=== PATIENT | male | born 1985 | race African-American/Black ===

== ENCOUNTER 2016-09-01 09:11 | Emergency (ER) | payer OTHER ==
[~2016-09-01] VITALS: Ht 167.6 cm; Wt 79.4 kg
--- NOTE | 2016-09-01 09:30 | ED GI/GU/ABDOMINAL COMPLAINT ---
History of Present Illness General Chief Complaint: Abdominal Pain/Flank Pain Stated Complaint: ABD PAIN, NAUSEOUS Source: patient Exam Limitations: no limitations Vital Signs & Intake/Output Vital Signs & Intake/Output Vital Signs Date Time Temp Pulse Resp B/P Pulse O2 O2 Flow FiO2 Ox Delivery Rate 09/01 1137 97.2 63 15 120/67 98 Room Air Room Air 09/01 0951 Room Air Room Air 09/01 0916 97.4 60 18 148/88 98 Room Air Allergies Coded Allergies: NO KNOWN ALLERGIES (09/01/16) Reconcile Medications Ibuprofen 800 MG TABLET 1 TAB PO Q8H PRN pain Ondansetron (Zofran Odt) 4 MG TAB.RAPDIS 1 TAB SL TID PRN nausea Oxycodone HCl/Acetaminophen (Percocet 5-325 MG Tablet) 5 MG-325 MG TABLET 1-2 TAB PO Q6H PRN PAIN Tamsulosin HCl (Flomax) 0.4 MG CAP.ER.24H 1 CAP PO DAILY PRN kidney stone Triage Note: PT COMPLAINS OF L SIDE FLANK PAIN, STARTED DULL LAST PM AND NOW IS 10/10 SHARP WITH NAUSEA. NOTED BLOOD IN URINE Triage Nurses Notes Reviewed? yes HPI: Patient is a 31-year-old male presents complaining of left-sided abdominal pain. Pain onset yesterday, worse today. Pain is a sharp pain currently 10 out of 10 , worsens with movement. Associated nausea this morning. Patient also reports dark urine that he believes may have contained blood this morning. Last bowel movement was this morning and normal. Patient denies fevers, chills, vomiting, dysuria, recent trauma. (DEBI RIOS) Past History Travel History Traveled to [place] past 21 day No Medical History Any Pertinent Medical History? 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 No (DEBI RIOS) Review of Systems Review of Systems Constitutional: Denies: chills, fever. EENTM: Reports: no symptoms. Respiratory: Denies: cough, short of breath. Cardiovascular: Denies: chest pain. GI: Reports: see HPI. Genitourinary: Reports: see HPI. Musculoskeletal: Denies: back pain. Skin: Reports: no symptoms. Neurological/Psychological: Reports: no symptoms. Hematologic/Endocrine: Reports: no symptoms. Immunologic/Allergic: Reports: no symptoms. (DEBI RIOS) Physical Exam Physical Exam General Appearance: well developed/nourished, alert, awake Head: atraumatic, normal appearance Eyes: Bilateral: normal appearance, PERRL, EOMI. Ears, Nose, Throat, Mouth: hearing grossly normal, moist mucous membrane Neck: normal inspection, supple, full range of motion Respiratory: normal breath sounds, chest non-tender, no respiratory distress, lungs clear Cardiovascular: regular rate/rhythm Gastrointestinal: normal bowel sounds, soft, mild diffuse left-sided abdominal tenderness. No rebound, rigidity, guarding Male Genitals: normal cremasteric reflex. mild left testicular tenderness Back: normal inspection, normal range of motion, no CVA tenderness Extremities: normal range of motion Neurologic/Psych: no motor/sensory deficits, awake, alert, oriented x 3, normal gait, normal mood/affect Skin: intact, normal color, warm/dry Core Measures ACS in differential dx? No Severe Sepsis Present: No Septic Shock Present: No (DEBI RIOS) Progress Differential Diagnosis: diverticulitis, epididymitis, orchitis, perforated viscous, pyelonephritis, SBO, testicular torsion, ureterolithiasis, urinary retention, urethritis, UTI/pyelo Plan of Care: Orders Procedure Date/time Status URINALYSIS 09/01 0935 Complete COMPREHENSIVE METABOLIC PANEL 09/01 0935 Complete CBC WITHOUT DIFFERENTIAL 09/01 0935 Complete Laboratory Tests 09/01/16 1030: Anion Gap 8, Estimated GFR > 60, BUN/Creatinine Ratio 17.5, Glucose 117 H, Calcium 9.2, Total Bilirubin 0.6, AST 20, ALT 38, Alkaline Phosphatase 57, Total Protein 6.5, Albumin 3.9, Globulin 2.6, Albumin/Globulin Ratio 1.5, CBC w Diff NO MAN DIFF REQ, RBC 5.10, MCV 85.0, MCH 28.4, RDW 13.7, MPV 8.4, Gran % 74.5, Lymphocytes % 17.3 L, Monocytes % 5.3, Eosinophils % 2.6, Basophils % 0.3, Absolute Granulocytes 6.6 H, Absolute Lymphocytes 1.5, Absolute Monocytes 0.5, Absolute Eosinophils 0.2, Absolute Basophils 0, PUBS MCHC 33.4 09/01/16 0945: Urine Color YEL, Urine Clarity CLDY H, Urine pH 6.0, Ur Specific [place] >= 1.030, Urine Protein 30 H, Urine Ketones NEG, Urine Nitrite NEG, Urine Bilirubin NEG, Urine Urobilinogen 0.2, Ur Leukocyte Esterase TRACE H, Ur Microscopic SEDIMENT EXAMINED, Urine RBC >75 H, Urine WBC RARE, Urine Hemoglobin LARGE H, Urine Glucose NEG 09/01/2016 11:38:34 AM: Pain resolved. Results of labs and imaging discussed with patient. Patient appears stable for discharge and outpatient follow-up. Patient provided with a urine strainer. (DEBI RIOS) Diagnostic Imaging: Viewed by Me: CT Scan. Discussed w/RAD: CT Scan. Initial ED EKG: none (DEBI RIOS) Departure Departure Time of Disposition: 1133 Disposition: HOME OR SELF CARE Condition: Stable Clinical Impression Primary Impression: Renal colic on left side Referrals: YESY PANCHAL,HERMELINDA JOHNSON MD,KEEGAN (PCP/Family) Additional Instructions: Drink plenty of fluids. Urinate into the strainer provided. Follow-up with Dr. Singh(urologist) for further evaluation. Return to the emergency department if he developed fevers, pain uncontrollable, unable to stay hydrated, or worsening of symptoms. Departure Forms: Customer Survey General Discharge Information Prescriptions: Current Visit Scripts Ibuprofen 1 TAB PO Q8H PRN pain #30 TAB Oxycodone HCl/Acetaminophen (Percocet 5-325 MG Tablet) 1-2 TAB PO Q6H PRN PAIN #15 TAB Ondansetron (Zofran Odt) 1 TAB SL TID PRN nausea #10 TAB Tamsulosin HCl (Flomax) 1 CAP PO DAILY PRN kidney stone #7 CAP (DEBI RIOS) PA/MOLD HOISTER Co-Sign Statement Statement: ED Attending supervision documentation- [] I saw and evaluated the patient. I have also reviewed all the pertinent lab results and diagnostic results. I agree with the findings and the plan of care as documented in the PA's/MOLD HOISTER's documentation. [X] I have reviewed the ED Record and agree with the PA's/MOLD HOISTER's documentation. [] Additions or exceptions (if any) to the PAs/MOLD HOISTER's note and plan are summarized below: [] (NAYE CRUMP DO)
--- NOTE | 2016-09-01 10:33 | CT SCAN REPORT ---
EXAMINATION: CT ABDOMEN AND PELVIS WITHOUT CONTRAST CLINICAL INFORMATION: Left-sided abdominal pain and question hematuria. COMPARISON: None available. TECHNIQUE: Multidetector volumetric imaging was performed from the superior aspect of the liver through the pubic symphysis. Sagittal and coronal reformatted images were obtained on the technologist's workstation. FINDINGS: There is a 2 mm obstructing calculus within the proximal left ureter at the L3-L4 disc level that results in mild left-sided hydroureteronephrosis. There are several punctate 1 to 2 mm nonobstructing calculi within the right kidney. The lung bases are clear. Limited evaluation of the unenhanced liver, spleen, adrenal glands, gallbladder, and pancreas reveals no definite abnormality. The large and small bowel are normal in caliber without evidence of mechanical obstruction. No focal inflammatory changes adjacent to the large or the small bowel. The appendix is normal. There is no free air and there is no intra-abdominal free fluid. No mesenteric or retroperitoneal adenopathy. The pelvic viscera are normal. No pelvic adenopathy. No free fluid within the pelvis. There are no acute osseous abnormalities. No significant soft tissue abnormality. IMPRESSION: - Left-sided obstructive uropathy with a 2 mm obstructing calculus within the proximal left ureter at the L3-L4 disc level that results in mild left-sided hydroureteronephrosis. - There are several punctate 1 to 2 mm nonobstructing calculi within the right kidney.
[2016-09-01 10:39] LABS: ABSOLUTE BASOPHIL COUNT 0 /CUMM (0.0-0.2); ABSOLUTE EOSINOPHIL COUNT 0.2 /CUMM (0.0-0.7); ABSOLUTE GRANULOCYTE CT 6.6 /CUMM (1.4-6.5); ABSOLUTE LYMPH COUNT 1.5 /CUMM (1.2-3.4); ABSOLUTE MONOCYTE COUNT 0.5 /CUMM (0.10-0.60); BASOPHIL % 0.3 % (0.0-2.0); EOSINOPHIL % 2.6 % (0-5); GRANULOCYTE % 74.5 % (42.2-75.2); HEMATOCRIT 43.3 % (42-52); MEAN CORPUSCULAR HGB 28.4 PG (27.0-31.0); MEAN CORPUSCULAR HGB CONC 33.4 G/DL (33.0-37.0); MEAN PLATELET VOLUME 8.4 FL (7.4-10.4); PLATELET COUNT 240 /CUMM (130-400); RBC DISTRIBUTION WIDTH 13.7 % (11.5-14.5); WHITE BLOOD CELL COUNT 8.9 /CUMM (4.8-10.8)
[2016-09-01] MEDS ORDERED: FLOMAX0.4 M1 PO (11:36)
[2016-09-01] MEDS ORDERED: ZOFRAN ODT4 M1 SL (11:36)
[2016-09-01] MEDS ORDERED: IBUPROFEN800 M1 PO (11:36)
[2016-09-01] MEDS ORDERED: PERCOCET 5-3251 EACH PO (11:36)
[2016-09-01 11:37] VITALS: BP 120/67
== END 2016-09-01 11:45 ==
LOC: ERH 09:11
PROVIDERS: Physician Assistant
DX: N23 Unspecified renal colic (principal)
CPT/HCPCS: 74176; 81001; 96361; 96374; 96375; J1885; J2405

== ENCOUNTER 2016-09-19 18:17 | Emergency (ER) | payer OTHER ==
[~2016-09-19] VITALS: Ht 167.6 cm; Wt 79.4 kg
[~2016-09-19 18:17] MED LIST: FLOMAX0.4 M1 PO; IBUPROFEN800 M1 PO; PERCOCET 5-3251 EACH PO; ZOFRAN ODT4 M1 SL
[2016-09-19 20:26] LABS: ABSOLUTE BASOPHIL COUNT 0 /CUMM (0.0-0.2); ABSOLUTE EOSINOPHIL COUNT 0.3 /CUMM (0.0-0.7); ABSOLUTE GRANULOCYTE CT 6.4 /CUMM (1.4-6.5); ABSOLUTE MONOCYTE COUNT 0.9 /CUMM (0.10-0.60); BASOPHIL % 0.4 % (0.0-2.0); EOSINOPHIL % 2.7 % (0-5); GRANULOCYTE % 59.9 % (42.2-75.2); HEMATOCRIT 46.5 % (42-52); MEAN CORPUSCULAR HGB 28.5 PG (27.0-31.0); MEAN CORPUSCULAR HGB CONC 33.3 G/DL (33.0-37.0); MEAN CORPUSCULAR VOLUME 85.4 FL (80.0-94.0); MEAN PLATELET VOLUME 8.2 FL (7.4-10.4); PLATELET COUNT 326 /CUMM (130-400); RBC DISTRIBUTION WIDTH 13.5 % (11.5-14.5); RED BLOOD CELL CT 5.45 /CUMM (4.70-6.10); WHITE BLOOD CELL COUNT 10.8 /CUMM (4.8-10.8)
--- NOTE | 2016-09-19 20:57 | ED GI/GU/ABDOMINAL COMPLAINT ---
History of Present Illness General Chief Complaint: Abdominal Pain/Flank Pain Stated Complaint: KIDNEY STONES Source: patient Exam Limitations: no limitations Vital Signs & Intake/Output Vital Signs & Intake/Output Vital Signs Date Time Temp Pulse Resp B/P B/P Pulse O2 O2 Flow FiO2 Mean Ox Delivery Rate 09/19 2143 96.8 63 18 108/68 98 Room Air 09/19 1824 98.3 83 16 146/79 96 Room Air ED Intake and Output 09/20 0000 09/19 1200 Intake Total Output Total Balance Patient 175 lb Weight Weight Reported by Patient Measurement Method Allergies Coded Allergies: NO KNOWN ALLERGIES (09/01/16) Triage Note: PT STATES HE HAS KIDNEY STONES HE WAS HERE 1.5 WEEKS AGO AND STATES HE THINKS THEY ARE BACK. 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 PT HAVING LEFT SIDED FLANK PAIN SINCE 1 HOUR AGO. Triage Nurses Notes Reviewed? yes HPI: Patient is a 31-year-old male presents complaining of left flank pain. Patient was diagnosed with kidney stones approximately one to 2 weeks ago, reports that his symptoms had improved. Pain increased over the past one day. Patient was administered ibuprofen in triage with significant improvement. Patient had associated nausea, was administered Zofran with significant improvement. Symptoms are currently minimal, were severe at home. Patient denies fevers, chills, vomiting, diarrhea, dysuria. (DEBI RIOS) Reconcile Medications Ondansetron (Zofran Odt) 4 MG TAB.RAPDIS 1 TAB SL TID PRN nausea Tramadol HCl 50 MG TABLET 1 TAB PO BIDP PRN pain (FELISA PANCHAL,KAROLINA Villegas) Past History Travel History Traveled to [place] past 21 day No Medical History Any Pertinent Medical History? 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 No (DEBI RIOS) Review of Systems Review of Systems Constitutional: Denies: chills, fever. EENTM: Reports: no symptoms. Respiratory: Denies: cough, short of breath. Cardiovascular: Denies: chest pain. GI: Reports: see HPI. Genitourinary: Reports: see HPI. Musculoskeletal: Denies: back pain. Skin: Reports: no symptoms. Neurological/Psychological: Reports: no symptoms. Hematologic/Endocrine: Reports: no symptoms. Immunologic/Allergic: Reports: no symptoms. (EDBI RIOS) Physical Exam Physical Exam General Appearance: well developed/nourished, alert, awake Head: atraumatic, normal appearance Eyes: Bilateral: normal appearance, PERRL, EOMI. Ears, Nose, Throat, Mouth: hearing grossly normal, moist mucous membrane Neck: normal inspection, supple, full range of motion Respiratory: normal breath sounds, chest non-tender, no respiratory distress, lungs clear Cardiovascular: regular rate/rhythm Gastrointestinal: normal bowel sounds, soft, mild left flank tenderness. Negative Monroy sign, negative McBurney's point tenderness Back: normal inspection, normal range of motion, no vertebral tenderness, no CVA tenderness Extremities: normal range of motion Neurologic/Psych: no motor/sensory deficits, awake, alert, oriented x 3, normal gait, normal mood/affect Skin: intact, normal color, warm/dry Core Measures ACS in differential dx? No Severe Sepsis Present: No Septic Shock Present: No (DEBI RIOS) Progress Differential Diagnosis: appendicitis, biliary colic, cholecystitis, diverticulitis, hepatitis, hernia, pancreatitis, prostatitis, PUD/GERD, pyelonephritis, ureterolithiasis, UTI/pyelo Plan of Care: Orders Procedure Date/time Status Add-on Test (ER Only) 09/19 2102 Active TRIGLYCERIDES 09/19 2009 Complete LIPASE 09/19 1909 Complete HEPATIC FUNCTION PANEL 09/19 1909 Complete CBC WITHOUT DIFFERENTIAL 09/19 1909 Complete BASIC METABOLIC PANEL 09/19 1909 Complete AMYLASE 09/19 1909 Complete URINALYSIS 09/19 1833 Complete Laboratory Tests 09/19/162009: Anion Gap 13, Estimated GFR > 60, BUN/Creatinine Ratio 14.0, Glucose 87, Calcium 9.9, Total Bilirubin 0.8, Direct Bilirubin 0.3, AST 24, ALT 35, Alkaline Phosphatase 65, Total Protein 8.0, Albumin 4.9, Triglycerides 74, Amylase 238 H , Lipase 1441 H, CBC w Diff NO MAN DIFF REQ, RBC 5.45, MCV 85.4, MCH 28.5, RDW 13.5, MPV 8.2, Gran % 59.9, Lymphocytes % 28.3, Monocytes % 8.7, Eosinophils % 2.7, Basophils % 0.4, Absolute Granulocytes 6.4, Absolute Lymphocytes 3.0, Absolute Monocytes 0.9 H, Absolute Eosinophils 0.3, Absolute Basophils 0, PUBS MCHC 33.3 09/19/16 1837: Urine Color YEL, Urine Clarity CLEAR, Urine pH 6.0, Ur Specific [place] 1.025, Urine Protein TRACE H, Urine Ketones NEG, Urine Nitrite NEG, Urine Bilirubin NEG, Urine Urobilinogen 1.0, Ur Leukocyte Esterase NEG, Ur Microscopic SEDIMENT EXAMINED, Urine RBC 25-50 H, Urine WBC 5-10 H, Ur Epithelial Cells FEW, Urine Bacteria FEW H, Urine Mucus PACKD H, Urine Hemoglobin LARGE H, Urine Glucose NEG 2250: Patient apparently walked out of the emergency department without notifying the nursing staff or me. (PANCHITO WALLS,DEBI) Diagnostic Imaging: Viewed by Me: Ultrasound. Discussed w/RAD: Ultrasound. Radiology Impression: PATIENT: LUDIN CRUZ PRESENT AGE: 31 PATIENT ACCOUNT NO: [id number] : 87 LOCATION: [facility] ORDERING PHYSICIAN: DEBI WALLS SERVICE DATE: 09/19/16 EXAM TYPE: US - US-COMPLETE ABDOMEN EXAMINATION: US ABDOMEN COMPLETE CLINICAL INFORMATION: Hematuria. Abdominal pain. Evaluate for kidney stone and pancreatitis. COMPARISON: CT abdomen and pelvis without contrast 09/01/2016. TECHNIQUE: Real- time imaging of the abdominal viscera. FINDINGS: PANCREAS: Partially obscured by overlying bowel gas. ABDOMINAL AORTA: The proximal segment is normal in caliber. INFERIOR VENA CAVA: Visualized portions are normal. LIVER: Unremarkable. The liver demonstrates normal size, contour and echogenicity. No focal lesion or intrahepatic biliary duct dilatation. GALLBLADDER: Unremarkable. The gallbladder is physiologically distended without evidence of stones, sludge, polyps, wall thickening or pericholecystic fluid. COMMON BILE DUCT: Normal in caliber measuring 0.3 cm in diameter. RIGHT KIDNEY: Unremarkable. No hydronephrosis. No renal calculi or focal parenchymal lesions. The kidney measures 10.2 cm in maximum dimension. LEFT KIDNEY: Unremarkable. No hydronephrosis. No renal calculi or focal parenchymal lesions. The kidney measures 12.0 cm in maximum dimension. SPLEEN: Unremarkable. The spleen measures 9.0 cm in maximum dimension. FREE FLUID: None. IMPRESSION: The pancreas is partially obscured by overlying bowel gas. No peripancreatic fluid collections are visualized. Otherwise, unremarkable abdominal ultrasound. DICTATED BY: COREY EGAN MD DATE/TIME DICTATED:09/19/162234 BLANKBOOK FORWARDER:SOHAIL DATE/TIME TRANSCRIBED:09/19/162234 CONFIDENTIAL, DO NOT COPY WITHOUT APPROPRIATE AUTHORIZATION. <Electronically signed in Other Vendor System> SIGNED BY: COREY EGAN MD 09/19/162 Initial ED EKG: none (EDBI RIOS) Departure Departure Disposition: ER WALKOUT Condition: Stable Clinical Impression Primary Impression: Renal colic on left side Secondary Impressions: Hematuria, Pancreatitis Referrals: KEEGAN JOHNSON MD (PCP/Family) Departure Forms: Customer Survey General Discharge Information (DEBI RIOS) PA/MASTER FIRE CONTROL TECHNICIAN Co-Sign Statement Statement: ED Attending supervision documentation- [] I saw and evaluated the patient. I have also reviewed all the pertinent lab results and diagnostic results. I agree with the findings and the plan of care as documented in the PA's/MASTER FIRE CONTROL TECHNICIAN's documentation. [x] I have reviewed the ED Record and agree with the PA's/MASTER FIRE CONTROL TECHNICIAN's documentation. [] Additions or exceptions (if any) to the PAs/MASTER FIRE CONTROL TECHNICIAN's note and plan are summarized below: [] (FELISA PANCHAL,KAROLINA Villegas)
[2016-09-19 21:43] VITALS: BP 108/68
--- NOTE | 2016-09-19 22:44 | ULTRASOUND REPORT ---
EXAMINATION: US ABDOMEN COMPLETE CLINICAL INFORMATION: Hematuria. Abdominal pain. Evaluate for kidney stone and pancreatitis. COMPARISON: CT abdomen and pelvis without contrast 09/01/2016. TECHNIQUE: Real-time imaging of the abdominal viscera. FINDINGS: PANCREAS: Partially obscured by overlying bowel gas. ABDOMINAL AORTA: The proximal segment is normal in caliber. INFERIOR VENA CAVA: Visualized portions are normal. LIVER: Unremarkable. The liver demonstrates normal size, contour and echogenicity. No focal lesion or intrahepatic biliary duct dilatation. GALLBLADDER: Unremarkable. The gallbladder is physiologically distended without evidence of stones, sludge, polyps, wall thickening or pericholecystic fluid. COMMON BILE DUCT: Normal in caliber measuring 0.3 cm in diameter. RIGHT KIDNEY: Unremarkable. No hydronephrosis. No renal calculi or focal parenchymal lesions. The kidney measures 10.2 cm in maximum dimension. LEFT KIDNEY: Unremarkable. No hydronephrosis. No renal calculi or focal parenchymal lesions. The kidney measures 12.0 cm in maximum dimension. SPLEEN: Unremarkable. The spleen measures 9.0 cm in maximum dimension. FREE FLUID: None. IMPRESSION: The pancreas is partially obscured by overlying bowel gas. No peripancreatic fluid collections are visualized. Otherwise, unremarkable abdominal ultrasound.
== END 2016-09-19 22:45 | disposition admitted as inpatient to this hospital (09) ==
LOC: ERH 18:17
PROVIDERS: Pediatrics
DX: N23 Unspecified renal colic (principal); K85.90 Acute pancreatitis without necrosis or infection, unspecified
CPT/HCPCS: 81001; J3101

== ENCOUNTER 2016-09-23 15:44 | Emergency (ER) | payer OTHER ==
[~2016-09-23] VITALS: Ht 167.6 cm; Wt 79.4 kg
--- NOTE | 2016-09-23 16:36 | ED GI/GU/ABDOMINAL COMPLAINT ---
History of Present Illness General Chief Complaint: Abdominal Pain/Flank Pain Stated Complaint: L FLANK PAIN, HX OF KIDNEY STONES Source: patient Exam Limitations: no limitations Vital Signs & Intake/Output Vital Signs & Intake/Output Vital Signs Date Time Temp Pulse Resp B/P B/P Pulse O2 O2 Flow FiO2 Mean Ox Delivery Rate 09/23 1819 97.0 69 18 125/71 98 Room Air 09/23 1548 97.6 76 20 125/84 97 Room Air ED Intake and Output 09/24 0000 09/23 1200 Intake Total Output Total Balance Patient 175 lb Weight Weight Reported by Patient Measurement Method Allergies Coded Allergies: NO KNOWN ALLERGIES (09/01/16) Reconcile Medications Ondansetron (Zofran Odt) 4 MG TAB.RAPDIS 1 TAB SL TID PRN nausea Tramadol HCl 50 MG TABLET 1 TAB PO BIDP PRN pain Triage Note: PT TO ED C/O "KIDNEY STONES". C/O LEFT FLANK PAIN. STARTED 3 WEEKS AGO. SEEN LAST WEEK FOR SAME. C/O URINARY URGENCY. HAS NOT SEEN A UROLOGIST. Triage Nurses Notes Reviewed? yes HPI: This patient is a 31-year-old male who presented to the emergency department today for evaluation of left lower quadrant abdominal pain. The patient reported that his pain began approximately 2 days ago and he has a dull associated left flank pain. He did report urinary frequency, but denies any urgency, dysuria, or blood in the urine. The patient reported that approximately 2 weeks ago he was diagnosed with kidney stones on the left. He never followed up with urologist. He reported that he came again about one week ago and was given Flomax any urologist follow-up with she never did. He reported that symptoms seemed to improve after that time, but began again 2 days ago. He denied any chest pain, difficult breathing, fevers, chills, nausea, vomiting. The patient took Motrin prior to arrival in the emergency department and is refusing any medication or fluids at this time. He reported that he is currently pain-free. The pain gets up to a 7 out of 10 and is intermittent. (RHONDA LAGUERRE,JERRI) Past History Travel History Traveled to [place] past 21 day No Medical History Any Pertinent Medical History? 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 No (JERRI ELLIS PA-C) Review of Systems Review of Systems Constitutional: Reports: no symptoms. EENTM: Reports: no symptoms. Respiratory: Reports: no symptoms. Cardiovascular: Reports: no symptoms. GI: Reports: see HPI. Genitourinary: Reports: see HPI. Musculoskeletal: Reports: see HPI. Skin: Reports: no symptoms. Neurological/Psychological: Reports: no symptoms. All Other Systems: Reviewed and Negative (JERRI ELLIS PA-C) Physical Exam Physical Exam Gastrointestinal: normal bowel sounds, soft, non-tender, no organomegaly, no rebound or guarding. Nondistended. No McBurney's point tenderness. Negative Monroy sign Comments: Well-developed well-nourished person in no acute distress HEENT: Normal EENT exam, moist mucous membranes Neck: Supple, no lymphadenopathy Back: Normal inspection. Normal gait. No midline tenderness. No CVA tenderness Cardiovascular: Regular rate and rhythm with no murmurs Respiratory: No respiratory distress. Breath sounds clear to auscultation bilaterally Extremity: Normal equal pulses Neuro: Alert oriented x3, cranial nerves II through XII grossly intact. Skin: No appreciable rash on exposed skin, skin is warm and dry. Psych: Mood and affect is normal Core Measures ACS in differential dx? No Severe Sepsis Present: No Septic Shock Present: No (JERRI ELLIS PA-C) Progress Differential Diagnosis: AMI, appendicitis, biliary colic, bowel obstruction, colon cancer, cholecystitis, diverticulitis, gastritis, hepatitis, hernia, ischemic bowel, inflamm bowel dis, pancreatitis, PUD/GERD, perforated viscous, pyelonephritis, ureterolithiasis, urinary retention, urethritis, UTI/pyelo Plan of Care: Orders Procedure Date/time Status Add-on Test (ER Only) 09/23 1651 Active CULTURE,URINE 09/23 1636 Active COMPREHENSIVE METABOLIC PANEL 09/23 1636 Complete CBC WITHOUT DIFFERENTIAL 09/23 163 Complete URINALYSIS 09/23 1621 Complete Laboratory Tests 09/23/16 1658: Anion Gap 11, Estimated GFR > 60, BUN/Creatinine Ratio 16.0, Glucose 104 H, Calcium 9.3, Total Bilirubin 0.5, AST 19, ALT 32, Alkaline Phosphatase 53, Total Protein 6.9, Albumin 4.4, Globulin 2.5, Albumin/Globulin Ratio 1.8, CBC w Diff NO MAN DIFF REQ, RBC 5.26, MCV 86.2, MCH 28.4, RDW 13.7, MPV 7.9, Gran % 68.7, Lymphocytes % 20.1 L, Monocytes % 8.6, Eosinophils % 2.3, Basophils % 0.3, Absolute Granulocytes 7.0 H, Absolute Lymphocytes 2.1, Absolute Monocytes 0.9 H, Absolute Eosinophils 0.2, Absolute Basophils 0, PUBS MCHC 32.9 L 09/23/16 1634: Urine Color YEL, Urine Clarity CLEAR, Urine pH 6.5, Ur Specific [place] 1.025, Urine Protein TRACE H, Urine Ketones TRACE H, Urine Nitrite NEG, Urine Bilirubin NEG, Urine Urobilinogen 1.0, Ur Leukocyte Esterase TRACE H, Ur Microscopic SEDIMENT EXAMINED, Urine RBC RARE, Ur Epithelial Cells RARE, Urine Hemoglobin SMALL H, Urine Glucose NEG Microbiology 09/23 1633 URINE ROUT: Urine Culture - RES Diagnostic Imaging: Viewed by Me: CT Scan. Discussed w/RAD: CT Scan. Radiology Impression: PATIENT: LUDIN CRUZ PRESENT AGE: 31 PATIENT ACCOUNT NO: [id number] : 87 LOCATION: [facility] ORDERING PHYSICIAN: JERRI ELLIS PA-C SERVICE DATE: 09/23/16 EXAM TYPE: CAT - CT ABD & PELVIS W/O IV CONTRAS EXAMINATION: CT ABDOMEN AND PELVIS WITHOUT CONTRAST CLINICAL INFORMATION: Left flank pain. COMPARISON: CT abdomen and pelvis without contrast 09/01/2016. TECHNIQUE: Multidetector volumetric imaging was performed from the superior aspect of the liver through the pubic symphysis. Sagittal and coronal reformatted images were obtained on the technologist's workstation. DLP: 253 mGy-cm FINDINGS: Limited evaluation of the solid abdominal viscera in the absence of intravenous contrast. LUNG BASES: The visualized lung bases are unremarkable. LIVER, GALLBLADDER, AND BILIARY TREE: The liver is normal in size, shape, and attenuation. No contour deforming hepatic lesion or biliary ductal dilatation is present. The gallbladder is unremarkable with no evidence of radiopaque gallstones, gallbladder wall thickening, or obvious pericholecystic inflammatory changes. PANCREAS: Unremarkable. SPLEEN: Unremarkable. ADRENAL GLANDS: Unremarkable. KIDNEYS AND URETERS: Evaluation of the bilateral kidneys is notable for asymmetric enlargement of the left kidney, which appears edematous relative to the right kidney. The appearance of the left kidney is likely secondary to an obstructing stone within the distal left ureter , at the left ureterovesicular junction measuring 4 mm. There is mild hydroureteronephrosis of the left kidney and left renal collecting system to the level of the left the obstructing stone. There is nephrolithiasis of the right kidney with 2-3 mm nonobstructing stones identified within the upper and mid poles of the right kidney. BLADDER: No bladder stones. GASTROINTESTINAL TRACT: Normal anatomic orientation of the stomach relative to the duodenum. Normal caliber of abdominal and pelvic bowel loops, without evidence of obstruction or ileus. No circumferential bowel wall thickening with surrounding inflammatory changes to suggest an underlying infectious or inflammatory enterocolitis. Normal-appearing appendix within the right lower quadrant of the abdomen. No organizing intra-abdominal fluid collections or free intraperitoneal air. ABDOMINAL WALL: No significant hernia is appreciated. LYMPH NODES: No significant abdominal or pelvic adenopathy. VASCULAR: Normal course and caliber of the abdominal aorta and its branching vessels, without aneurysmal dilatation. Limited evaluation for vascular patency in the absence of intravenous contrast. PELVIC VISCERA: Unremarkable. OSSEOUS STRUCTURES: No acute osseous abnormality. Normal alignment of the imaged thoracolumbar spine. IMPRESSION: 1. Asymmetric enlargement of the left kidney, which appears edematous relative to the right kidney. The appearance of the left kidney is likely secondary to a 4 mm obstructing stone within the distal left ureter, at the left ureterovesicular junction. There is mild upstream hydroureteronephrosis of the left kidney and left renal collecting system. 2. Nephrolithiasis of the right kidney with 2-3 mm nonobstructing stones identified within the upper and mid poles of the right kidney. DICTATED BY: COREY EGAN MD DATE/TIME DICTATED:09/23/161800 DEPUTY CORONER INVESTIGATOR:SOHAIL DATE/TIME TRANSCRIBED:09/23/161800 CONFIDENTIAL, DO NOT COPY WITHOUT APPROPRIATE AUTHORIZATION. <Electronically signed in Other Vendor System> SIGNED BY: COREY EGAN MD 09/23/161814 Initial ED EKG: none (RHONDA LAGUERRE,JERRI) Departure Departure Disposition: HOME OR SELF CARE Condition: Stable Clinical Impression Primary Impression: Ureterolithiasis Referrals: ROCÍO PANCHAL,KEVIN JOHNSON MD,KEEGAN (PCP/Family) Additional Instructions: Continue to take Flomax as previously directed. Take medication for pain as instructed. Follow-up with the urologist whose information has been provided to you in this packet. Return for any worsening symptoms or concerns. Departure Forms: Customer Survey General Discharge Information Prescriptions: Current Visit Scripts Tramadol HCl 1 TAB PO BIDP PRN pain #10 TAB Ondansetron (Zofran Odt) 1 TAB SL TID PRN nausea #10 TAB (JERRI ELLIS PA-C) PA/FORENSIC PATHOLOGIST Co-Sign Statement Statement: ED Attending supervision documentation- [] I saw and evaluated the patient. I have also reviewed all the pertinent lab results and diagnostic results. I agree with the findings and the plan of care as documented in the PA's/FORENSIC PATHOLOGIST's documentation. [X] I have reviewed the ED Record and agree with the PA's/FORENSIC PATHOLOGIST's documentation. [] Additions or exceptions (if any) to the PAs/FORENSIC PATHOLOGIST's note and plan are summarized below: [] (JACQUI PANCHAL,BESS)
[2016-09-23 17:08] LABS: ABSOLUTE BASOPHIL COUNT 0 /CUMM (0.0-0.2); ABSOLUTE EOSINOPHIL COUNT 0.2 /CUMM (0.0-0.7); ABSOLUTE LYMPH COUNT 2.1 /CUMM (1.2-3.4); ABSOLUTE MONOCYTE COUNT 0.9 /CUMM (0.10-0.60); BASOPHIL % 0.3 % (0.0-2.0); EOSINOPHIL % 2.3 % (0-5); GRANULOCYTE % 68.7 % (42.2-75.2); HEMATOCRIT 45.3 % (42-52); MEAN CORPUSCULAR HGB 28.4 PG (27.0-31.0); MEAN CORPUSCULAR HGB CONC 32.9 G/DL (33.0-37.0); MEAN CORPUSCULAR VOLUME 86.2 FL (80.0-94.0); MEAN PLATELET VOLUME 7.9 FL (7.4-10.4); PLATELET COUNT 296 /CUMM (130-400); RBC DISTRIBUTION WIDTH 13.7 % (11.5-14.5); RED BLOOD CELL CT 5.26 /CUMM (4.70-6.10); WHITE BLOOD CELL COUNT 10.2 /CUMM (4.8-10.8)
--- NOTE | 2016-09-23 18:15 | CT SCAN REPORT ---
EXAMINATION: CT ABDOMEN AND PELVIS WITHOUT CONTRAST CLINICAL INFORMATION: Left flank pain. COMPARISON: CT abdomen and pelvis without contrast 09/01/2016. TECHNIQUE: Multidetector volumetric imaging was performed from the superior aspect of the liver through the pubic symphysis. Sagittal and coronal reformatted images were obtained on the technologist's workstation. DLP: 253 mGy-cm FINDINGS: Limited evaluation of the solid abdominal viscera in the absence of intravenous contrast. LUNG BASES: The visualized lung bases are unremarkable. LIVER, GALLBLADDER, AND BILIARY TREE: The liver is normal in size, shape, and attenuation. No contour deforming hepatic lesion or biliary ductal dilatation is present. The gallbladder is unremarkable with no evidence of radiopaque gallstones, gallbladder wall thickening, or obvious pericholecystic inflammatory changes. PANCREAS: Unremarkable. SPLEEN: Unremarkable. ADRENAL GLANDS: Unremarkable. KIDNEYS AND URETERS: Evaluation of the bilateral kidneys is notable for asymmetric enlargement of the left kidney, which appears edematous relative to the right kidney. The appearance of the left kidney is likely secondary to an obstructing stone within the distal left ureter, at the left ureterovesicular junction measuring 4 mm. There is mild hydroureteronephrosis of the left kidney and left renal collecting system to the level of the left the obstructing stone. There is nephrolithiasis of the right kidney with 2-3 mm nonobstructing stones identified within the upper and mid poles of the right kidney. BLADDER: No bladder stones. GASTROINTESTINAL TRACT: Normal anatomic orientation of the stomach relative to the duodenum. Normal caliber of abdominal and pelvic bowel loops, without evidence of obstruction or ileus. No circumferential bowel wall thickening with surrounding inflammatory changes to suggest an underlying infectious or inflammatory enterocolitis. Normal-appearing appendix within the right lower quadrant of the abdomen. No organizing intra-abdominal fluid collections or free intraperitoneal air. ABDOMINAL WALL: No significant hernia is appreciated. LYMPH NODES: No significant abdominal or pelvic adenopathy. VASCULAR: Normal course and caliber of the abdominal aorta and its branching vessels, without aneurysmal dilatation. Limited evaluation for vascular patency in the absence of intravenous contrast. PELVIC VISCERA: Unremarkable. OSSEOUS STRUCTURES: No acute osseous abnormality. Normal alignment of the imaged thoracolumbar spine. IMPRESSION: 1. Asymmetric enlargement of the left kidney, which appears edematous relative to the right kidney. The appearance of the left kidney is likely secondary to a 4 mm obstructing stone within the distal left ureter, at the left ureterovesicular junction. There is mild upstream hydroureteronephrosis of the left kidney and left renal collecting system. 2. Nephrolithiasis of the right kidney with 2-3 mm nonobstructing stones identified within the upper and mid poles of the right kidney.
[2016-09-23 18:19] VITALS: BP 125/71
[2016-09-23] MEDS ORDERED: TRAMADOL HCL50 M1 PO (18:40)
[2016-09-23] MEDS ORDERED: ZOFRAN ODT4 M1 SL (18:40)
== END 2016-09-23 18:50 ==
LOC: ERH 15:44
PROVIDERS: Physician Assistant
DX: N20.1 Calculus of ureter (principal)
CPT/HCPCS: 74176; 81001; 87086; J1885; J3101